=== PATIENT | female | born 1930 | race Caucasian/White ===

== ENCOUNTER 2017-03-31 07:31 | Emergency (ER) | payer OTHER ==
[~2017-03-31] VITALS: Ht 152.4 cm; Wt 0.5 kg
[~2017-03-31 07:31] MED LIST: ASA81 MG PO; CALTRATE 600600 MG PO; CRESTOR10 MG PO; DIOVAN HCT 80-11 TAB PO; GLUCOSAMINE 1,51 CAP PO; LACTAID3000 UNIT PO; NABUMETONE500 MG PO; OMEGA-31000 MG PO; PEPCID20 MG; PRILOSEC20 MG PO; SYNTHROID88 MCG PO
[2017-03-31] MEDS ORDERED: SYNTHROID112 MCG (07:36)
[2017-03-31] MEDS ORDERED: COREG (07:37)
[2017-03-31] MEDS ORDERED: LIPITOR20 MG (07:37)
[2017-03-31] MEDS ORDERED: ZOLOFT25 MG (07:38)
== END 2017-03-31 14:27 | disposition home or self-care (01) ==
LOC: ER 07:31
DX: K29.70 Gastritis, unspecified, without bleeding (principal); R42 Dizziness and giddiness

== ENCOUNTER → 2017-06-18 06:10 | Outpatient (CLI) | payer OTHER ==
[~2017-06-18 06:10] MED LIST changes: +COREG; +LIPITOR20 MG; +SYNTHROID112 MCG; +ZOLOFT25 MG
== END | disposition home or self-care (01) ==
LOC: LAB 06:10
DX: E55.9 Vitamin D deficiency, unspecified (principal); E03.8 Other specified hypothyroidism; D68.8 Other specified coagulation defects; D64.89 Other specified anemias; E78.2 Mixed hyperlipidemia; Z12.11 Encounter for screening for malignant neoplasm of colon; Z12.6 Encounter for screening for malignant neoplasm of bladder

== ENCOUNTER → 2018-01-04 07:30 | Outpatient (CLI) | payer OTHER | END | disposition home or self-care (01) | LOC: LAB 07:30 | DX: E11.65 Type 2 diabetes mellitus with hyperglycemia (principal); D64.89 Other specified anemias; D68.8 Other specified coagulation defects; E03.8 Other specified hypothyroidism; E78.2 Mixed hyperlipidemia ==

== ENCOUNTER 2018-01-09 12:01 | Outpatient (CLI) | payer OTHER | END 2018-01-09 12:13 | disposition home or self-care (01) | LOC: RAD 12:01 | DX: M84.461A Pathological fracture, right tibia, initial encounter for fracture (principal) ==

== ENCOUNTER 2018-04-17 09:54 | Outpatient (CLI) | payer OTHER | END 2018-04-17 10:00 | disposition home or self-care (01) | LOC: LAB 09:54 | DX: E03.8 Other specified hypothyroidism (principal); E11.65 Type 2 diabetes mellitus with hyperglycemia; D64.89 Other specified anemias; E78.2 Mixed hyperlipidemia; Z12.4 Encounter for screening for malignant neoplasm of cervix; D68.8 Other specified coagulation defects ==

== ENCOUNTER 2018-04-24 10:29 | Outpatient (CLI) | payer OTHER | END 2018-04-24 13:45 | disposition home or self-care (01) | LOC: LAB 10:29 | DX: E03.8 Other specified hypothyroidism (principal); E11.69 Type 2 diabetes mellitus with other specified complication; D64.89 Other specified anemias; E78.2 Mixed hyperlipidemia; Z12.4 Encounter for screening for malignant neoplasm of cervix; D68.8 Other specified coagulation defects; J45.998 Other asthma ==

== ENCOUNTER → 2018-07-19 06:09 | Outpatient (CLI) | payer OTHER | END | disposition home or self-care (01) | LOC: LAB 06:09 | DX: E03.8 Other specified hypothyroidism (principal); E11.65 Type 2 diabetes mellitus with hyperglycemia; D64.89 Other specified anemias ==

== ENCOUNTER 2018-08-27 06:10 | Outpatient (CLI) | payer OTHER ==
[2018-08-30] MEDS ORDERED: AUGMENTIN PO (16:58)
[2018-08-30] MEDS ORDERED: INTESTINEX680 M1 PO (16:58)
== END 2018-08-27 06:14 | disposition home or self-care (01) ==
LOC: LAB 06:10
DX: E11.65 Type 2 diabetes mellitus with hyperglycemia (principal)

== ENCOUNTER → 2018-08-30 | Emergency (ER) | payer OTHER ==
[~2018-08-30] VITALS: Ht 160 cm; Wt 61.2 kg
[~2018-08-30] MED LIST changes: +AUGMENTIN PO; +INTESTINEX680 M1 PO
== END | disposition home or self-care (01) ==
LOC: ER 16:11
DX: S90.811A Abrasion, right foot, initial encounter (principal); W45.8XXA Other foreign body or object entering through skin, initial encounter; Y93.89 Activity, other specified; Y92.89 Other specified places as the place of occurrence of the external cause; Y99.8 Other external cause status

== ENCOUNTER → 2018-10-20 06:27 | Outpatient (CLI) | payer OTHER | END | disposition home or self-care (01) | LOC: LAB 06:27 | DX: E11.65 Type 2 diabetes mellitus with hyperglycemia (principal); N39.0 Urinary tract infection, site not specified; D64.89 Other specified anemias; E03.8 Other specified hypothyroidism ==

== ENCOUNTER 2019-01-22 08:41 | Outpatient (CLI) | payer OTHER | END 2019-01-22 09:59 | disposition home or self-care (01) | LOC: LAB 08:41 | DX: E11.65 Type 2 diabetes mellitus with hyperglycemia (principal); E78.2 Mixed hyperlipidemia; D64.89 Other specified anemias ==

== ENCOUNTER 2019-03-22 19:53 | Emergency (ER) | payer OTHER ==
[~2019-03-22] VITALS: Ht 149.9 cm; Wt 56.2 kg
[2019-03-22] MEDS ORDERED: SYNTHROID75 MCG (20:20)
[2019-03-22] MEDS ORDERED: CARVEDILOL12.5 MG (20:20)
[2019-03-22] MEDS ORDERED: FOLIC ACID1 MG (20:21)
== END 2019-03-22 22:12 | disposition home or self-care (01) ==
LOC: ER 19:53
DX: S00.03XA Contusion of scalp, initial encounter (principal); S30.0XXA Contusion of lower back and pelvis, initial encounter; S70.02XA Contusion of left hip, initial encounter; S70.01XA Contusion of right hip, initial encounter; W18.39XA Other fall on same level, initial encounter; Y93.89 Activity, other specified; Y92.012 Bathroom of single-family (private) house as the place of occurrence of the external cause; Y99.8 Other external cause status

== ENCOUNTER 2019-04-08 12:50 | Inpatient (IN) | payer OTHER ==
[~2019-04-08] VITALS: Ht 149.9 cm; Wt 56.7 kg
[~2019-04-08 12:50] MED LIST changes: +CARVEDILOL12.5 MG; +FOLIC ACID1 MG; +SYNTHROID75 MCG
--- NOTE | 2019-04-08 13:32 | NUR ---
PTE FEMENINA ALERTA Y ORIENTADA EN [place] EN COMPANIA DE FAMILIAR REFIERE TOS CON SECRECIONES DESDE HACE [place] SEMANA. DRA. FELICIANO REFIERE UBICAR PTE EN ASMA UNIT.
--- NOTE | 2019-04-08 13:42 | NUR ---
ABG Y TERAPIAS RESPIRATORIAS NOTIFICADAS A MS COREDERO POR MS CAVANAUGH.
--- NOTE | 2019-04-08 13:43 | NUR ---
MRS GumeRosetta ASHLEY ORIENTA A PT SOBRE TX LA CUAL REFIERE ENTENDER. SE LE COLECTAN MUESTRAS, SE CANALIZA Y SE LE ADMINISTRAN MEDICAMENTOS LOLI PRESCRITOS, UTILIZANDO MEDIDAS ASEPTICAS, PT TOLERA. SE NOTIFICA TERAPIA RESPIRATORIA Y ABGS.
== END 2019-04-11 19:28 | disposition home or self-care (01) | DRG 203 ==
LOC: ER 12:50 → MEDI 19:46
PROVIDERS: ADMIT Specialist
PROC: 4A033R1 Measurement of Arterial Saturation, Peripheral, Percutaneous Approach (ICD-10-PCS; principal; 2019-04-08)
PROC: 3E0F7GC Introduction of Other Therapeutic Substance into Respiratory Tract, Via Natural or Artificial Opening (ICD-10-PCS; 2019-04-08)
DX: J45.42 Moderate persistent asthma with status asthmaticus (principal); I11.9 Hypertensive heart disease without heart failure; E03.8 Other specified hypothyroidism; J20.9 Acute bronchitis, unspecified

== ENCOUNTER → 2019-08-01 13:27 | Outpatient (CLI) | payer OTHER | END | disposition home or self-care (01) | LOC: LAB 13:27 | PROVIDERS: ATTEND Specialist | DX: D68.8 Other specified coagulation defects (principal); D64.89 Other specified anemias; E03.8 Other specified hypothyroidism; E78.2 Mixed hyperlipidemia; E11.65 Type 2 diabetes mellitus with hyperglycemia ==

== ENCOUNTER 2019-08-03 06:18 | Outpatient (CLI) | payer OTHER | END 2019-08-03 15:00 | disposition home or self-care (01) | LOC: LAB 06:18 | PROVIDERS: ATTEND Specialist | DX: D68.8 Other specified coagulation defects (principal); D64.89 Other specified anemias; E03.8 Other specified hypothyroidism; E78.2 Mixed hyperlipidemia; E11.65 Type 2 diabetes mellitus with hyperglycemia ==

== ENCOUNTER → 2019-12-15 06:24 | Outpatient (CLI) | payer OTHER | END | disposition home or self-care (01) | LOC: LAB 06:24 | PROVIDERS: ATTEND Specialist | DX: E03.8 Other specified hypothyroidism (principal); E55.9 Vitamin D deficiency, unspecified; D64.89 Other specified anemias; E11.65 Type 2 diabetes mellitus with hyperglycemia; D55.9 Anemia due to enzyme disorder, unspecified ==

== ENCOUNTER → 2020-04-19 15:00 | Outpatient (CLI) | payer OTHER | END | disposition home or self-care (01) | LOC: PPH VACUNA 15:00 | PROVIDERS: ATTEND Emergency Medicine Pediatric Emergency Medicine | DX: Z23 Encounter for immunization (principal) ==

== ENCOUNTER → 2020-05-01 06:28 | Outpatient (CLI) | payer OTHER | END | disposition home or self-care (01) | LOC: LAB 06:28 | PROVIDERS: ATTEND Specialist | DX: D64.89 Other specified anemias (principal); E78.2 Mixed hyperlipidemia; E11.65 Type 2 diabetes mellitus with hyperglycemia; R50.9 Fever, unspecified; R05 Cough; R06.02 Shortness of breath ==

== ENCOUNTER 2020-10-18 06:13 | Outpatient (CLI) | payer OTHER | END 2020-10-18 06:14 | disposition home or self-care (01) | LOC: LAB 06:13 | PROVIDERS: ATTEND Specialist | DX: E03.8 Other specified hypothyroidism (principal); E11.65 Type 2 diabetes mellitus with hyperglycemia; E78.2 Mixed hyperlipidemia; E06.3 Autoimmune thyroiditis; E11.21 Type 2 diabetes mellitus with diabetic nephropathy ==

== ENCOUNTER 2021-01-23 08:00 | Outpatient (CLI) | payer OTHER | END 2021-01-23 08:30 | disposition home or self-care (01) | LOC: PPH VACUNA 08:00 | PROVIDERS: ATTEND Emergency Medicine Pediatric Emergency Medicine | DX: Z23 Encounter for immunization (principal) ==

== ENCOUNTER → 2021-02-27 06:19 | Outpatient (CLI) | payer OTHER | END | disposition home or self-care (01) | LOC: LAB 02-26 15:59 | PROVIDERS: ATTEND Specialist | DX: U07.1 COVID-19 (principal) ==

== ENCOUNTER 2021-06-04 06:06 | Outpatient (CLI) | payer OTHER | END 2021-06-04 06:07 | disposition home or self-care (01) | LOC: LAB 06:06 | PROVIDERS: ATTEND Specialist | DX: C73 Malignant neoplasm of thyroid gland (principal); E03.9 Hypothyroidism, unspecified ==

== ENCOUNTER 2021-12-11 06:36 | Outpatient (CLI) | payer OTHER | END 2021-12-11 08:10 | disposition home or self-care (01) | LOC: LAB 06:36 | PROVIDERS: ATTEND Specialist | DX: E03.9 Hypothyroidism, unspecified (principal); E11.21 Type 2 diabetes mellitus with diabetic nephropathy; N39.0 Urinary tract infection, site not specified; E78.5 Hyperlipidemia, unspecified; E11.65 Type 2 diabetes mellitus with hyperglycemia; D64.9 Anemia, unspecified; K75.81 Nonalcoholic steatohepatitis (NASH) ==